=== PATIENT | female | born 1980 | race Caucasian/White ===

== ENCOUNTER 2019-01-19 10:34 | Emergency (ER) | payer OTHER ==
[~2019-01-19] VITALS: Ht 165.1 cm; Wt 70.0 kg
[~2019-01-19 10:34] MED LIST: ALBU8.5H8 INH; CEPH-443 PO; FLUT9.9S NASAL; LORA10CA PO; MED4DP PO; SULF1TAB31 PO; TRAM50TA2 PO; [UNRECOGNIZED DRUG - CODE] PO
[2019-01-19 10:40] VITALS: Ht 165.1 cm; Wt 70.0 kg
[2019-01-19] MEDS ORDERED: LIDOCAINE 2% (MDV) 20 ML INJ INJ ONE (14:00)
== END 2019-01-19 14:54 | disposition home or self-care (01) ==
LOC: FTE 10:34
DX: N75.0 Cyst of Bartholin's gland (principal)
CPT/HCPCS: 56420; 81003; 81025; Z7502; Z7610

== ENCOUNTER 2019-01-21 12:31 | Emergency (ER) | payer OTHER ==
[~2019-01-21] VITALS: Ht 157.5 cm; Wt 69.8 kg
[2019-01-21 12:34] VITALS: BP 123/73; PULSE 102; RESP 18; Ht 157.5 cm; Wt 69.8 kg
== END 2019-01-21 14:04 | disposition home or self-care (01) ==
LOC: FTE 12:31
DX: Z48.01 Encounter for change or removal of surgical wound dressing (principal)
CPT/HCPCS: 99281